=== PATIENT | male | born 1985 | race Caucasian/White ===

== ENCOUNTER 2016-09-19 16:20 | Emergency (ER) | payer OTHER ==
[2016-09-19 16:47] VITALS: BP 105/76; PULSE 58; TEMP 97.2; BMI 22.1
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
== END 2016-09-19 17:00 | disposition home or self-care (01) ==
LOC: JERFT 16:20 → JER 16:20 → JERFT 17:00
DX: S20.222A Contusion of left back wall of thorax, initial encounter (principal); Y04.1XXA Assault by human bite, initial encounter; Y93.89 Activity, other specified; Y92.198 Other place in other specified residential institution as the place of occurrence of the external cause; E11.9 Type 2 diabetes mellitus without complications; J45.909 Unspecified asthma, uncomplicated; F98.8 Other specified behavioral and emotional disorders with onset usually occurring in childhood and adolescence; F79 Unspecified intellectual disabilities; Q87.1 Congenital malformation syndromes predominantly associated with short stature
CPT/HCPCS: 99281-25

== ENCOUNTER 2018-07-18 09:03 | Emergency (ER) | payer OTHER ==
[2018-07-18 09:21] VITALS: BMI 34.0
--- NOTE | 2018-07-18 09:46 | PDOC ---
History of Present Illness - General Chief Complaint: Weakness Stated Complaint: SICK History Source: Patient Exam Limitations: No Limitations - History of Present Illness Initial Comments: 07/18/18 10:19 33 yo M with a hx of MR, DM, asthma, and manic disorder presents to the emergency department with lethargy and non productive cough for the past 3 days. Per the fire prevention forester, he states that normally he is hyperactive and runs around. He denies recent sick contacts in the facility and states his temperature has not been elevated. Per the patient, he states he "feels better" but was sleepy on interview and difficult to get answers out of. He denies the following: fever, chills, chest pain, SOB, abdominal pain, dysuria, nausea, vomiting, and constipation. Endorses diarrhea. PMD: Dr. Juvencio Narvaez: rectal prolapse Meds: loratadine, lithium, valproic acid, clonazepam, and trazadone Allergies: NKDA Social: Denies tobacco, alcohol, and substance abuse. Past History - Past Medical History Allergies/Adverse Reactions: Allergies Allergy/AdvReac Type Severity Reaction Status Date / Time No Known Allergies Allergy Verified 09/19/16 16:27 Home Medications: Ambulatory Orders Ammonium Lactate [Skin Treatment] 225 gm TP DAILY 06/01/14 Carbamazepine [Tegretol -] 600 mg PO TID 06/01/14 Clonazepam 0.5 mg PO BID 06/01/14 Clonazepam [Klonopin] 2 mg PO HS 06/01/14 Docusate Sodium [Colace -] 200 mg PO BID 06/01/14 [place] Carbonate [Eskalith -] 300 mg PO DAILY 06/01/14 Melatonin 6 mg PO HS 06/01/14 Multivitamins [Multivit ([facility])] 1 tab PO DAILY 06/01/14 Risperidone 0.5 mg PO HS 06/01/14 Risperidone 3 mg PO BID 06/01/14 Divalproex *ER* [Depakote *ER* -] 500 mg PO BID 10/16/15 Albuterol 0.083% Nebulizer Velia [Ventolin 0.083% Nebulizer Soln -] 1 amp NEB Q4H #30 amp 07/18/18 Calcium Carbonate/Vitamin D3 [Calcium 500-Vit D3 600 Caplet] 1 each PO DAILY Carbamide Peroxide 6.5% [Debrox -] 1 drop AD ASDIR 07/18/18 Cholecalciferol (Vitamin D3) [Vitamin D] 2,000 unit PO DAILY 07/18/18 Divalproex [Depakote -] 250 mg PO DAILY 07/18/18 Loratadine 10 mg PO DAILY 07/18/18 Nebulizer Accessories [Reusable Nebulizer Kit] 1 each MC DAILY #1 kit 07/18/18 Nebulizer [Compact Compressor Nebulizer] 1 each MC DAILY #1 each 07/18/18 Oseltamivir Phosphate [Tamiflu -] 75 mg PO BID #10 capsule 07/18/18 Prednisone [Prednisone 50 MG TABLETS] 50 mg PO DAILY #3 tablet 07/18/18 traZODone HCL [Trazodone HCl] 100 mg PO HS 07/18/18 Asthma: Yes COPD: No Diabetes: Yes Psychiatric Problems: Yes (ADD, AARSKOG SYNDROME) - Immunization History Immunization Up to Date: Yes - Suicide/Smoking/Psychosocial Hx Smoking History: Never smoked Hx Alcohol Use: No Drug/Substance Use Hx: No Substance Use Type: None Review of Systems - Review of Systems Able to Perform ROS?: Yes Is the patient limited Greenlandic proficient: No Constitutional: Yes: Weakness. No: Chills, Diaphoresis, Fever HEENTM: Yes: Nose Congestion. No: Recent change in vision, Nose Pain, Throat Pain, Mouth Pain Respiratory: Yes: Cough. No: Shortness of Breath, SOB with Exertion, Productive cough, Hemoptysis Cardiac (ROS): No: Chest Pain, Lightheadedness, Palpitations, Syncope, Chest Tightness ABD/GI: Yes: Diarrhea. No: Constipated, Nausea, Poor Appetite, Poor Fluid Intake, Rectal Bleeding, Vomiting, Indigestion, Abdominal cramping, Tarry Stools : No: Burning, Dysuria, Hematuria, Urgency Musculoskeletal: No: Back Pain, Joint Pain, Neck Pain Integumentary: No: Rash Neurological: No: Headache, Numbness Psychiatric: No: Change in Appetite Endocrine: No: Unexplained Weight Gain *Physical Exam - Vital Signs Last Vital Signs Temp Pulse Resp BP Pulse Ox 99.1 F 69 16 108/63 93 L 07/18/18 09:13 07/18/18 09:13 07/18/18 09:13 07/18/18 09:13 07/18/18 09:13 - Physical Exam General Appearance: Yes: Nourished, Appropriately Dressed. No: Apparent Distress, Intoxicated HEENT: positive: EOMI, MAGGIE, Normal Voice, Pharynx Normal, Nasal Congestion ( yellow discharge), Rhinorrhea, Hearing Grossly Normal, Other (oral secretions that were present before illness. ). negative: Pale Conjunctivae, Scleral Icterus (R), Scleral Icterus (L), Muffled/Hoarse voice, Pharyngeal Erythema, Tonsillar Exudate, Tonsillar Erythema, Sinus Tenderness, Excessive drooling Neck: positive: Trachea midline. negative: Tender, Lymphadenopathy (R), Lymphadenopathy (L), Tender lateral, Tender midline Respiratory/Chest: positive: Lungs Clear, Normal Breath Sounds. negative: Chest Tender, Respiratory Distress, Accessory Muscle Use, Crackles, Rales, Rhonchi, Stridor, Wheezing, Hyperresonant Cardiovascular: positive: Regular Rhythm, Regular Rate, S1, S2. negative: Systolic Murmur Gastrointestinal/Abdominal: positive: Normal Bowel Sounds, Flat, Soft. negative : Tender, Guarding, Rebound, Hernia, Mass Lymphatic: negative: Adenopathy Musculoskeletal: positive: Normal Inspection. negative: CVA Tenderness, Vertebral Tenderness Extremity: positive: Normal Capillary Refill, Normal Inspection, Normal Range of Motion. negative: Tender Integumentary: positive: Normal Color, Dry, Warm. negative: Rash, Swelling Neurologic: positive: Alert, Normal Mood/Affect, Motor Strength 5/5, Other ( lethargic on exam. inconsistent following of commands) Moderate Sedation - Procedure Monitoring Vital Signs: Procedure Monitoring Vital Signs Temperature 99.1 F 07/18/18 09:13 Pulse Rate 69 07/18/18 09:13 Respiratory Rate 16 07/18/18 09:13 Blood Pressure 108/63 07/18/18 09:13 O2 Sat by Pulse Oximetry (%) 93 L 07/18/18 09:13 Heart Score/ECG Review - ECG Intrepretation Comment:: ventricular rate: 73 bpm, MT is 140 ms, QTc is 427 ms, QRS is 102 ms. Normal sinus rhythm without ST elevations or depressions. ED Treatment Course - LABORATORY CBC & Chemistry Diagram: 07/18/18 10:33 07/18/18 10:33 Medical Decision Making - Medical Decision Making 07/18/18 11:21 33 yo M with a hx of MR, DM, asthma, and manic disorder presents to the emergency department with lethargy and non productive cough for the past 3 days. Initial vitals" Initial Vital Signs Temp Pulse Resp BP Pulse Ox 99.1 F 69 16 108/63 93 L 07/18/18 09:13 07/18/18 09:13 07/18/18 09:13 07/18/18 09:13 07/18/18 09:13 Work up ddx: AMS possibly secondary to infectious etiology (PNA vs UTI vs viral) vs metabolic disturbance vs medications non compliance vs toxicity vs sepsis vs influenza. Patient is compliant with medications per the fire prevention forester. Laboratory Tests 07/18/18 07/18/18 07/18/18 10:20 10:20 10:20 WBC RBC Hgb Hct MCV MCH MCHC RDW Plt Count MPV Absolute Neuts (auto) Neutrophils % Lymphocytes % Monocytes % Eosinophils % Basophils % Nucleated RBC % PT with INR INR PTT (Actin FS) VBG pH 7.35 POC VBG pCO2 68.7 H* POC VBG pO2 37.8 Mixed VBG HCO3 37.6 H Sodium Potassium Chloride Carbon Dioxide Anion Gap BUN Creatinine Creat Clearance w eGFR Random Glucose Lactic Acid 1.9 Calcium Total Bilirubin AST ALT Alkaline Phosphatase Total Protein Albumin Influenza A (Rapid) Positive A Influenza B (Rapid) Negative 07/18/18 07/18/18 07/18/18 10:33 10:33 10:33 WBC 2.9 L RBC 4.56 Hgb 15.2 Hct 45.0 MCV 98.6 H MCH 33.3 MCHC 33.7 RDW 13.0 Plt Count 79 L MPV 8.7 Absolute Neuts (auto) 2.0 Neutrophils % 68.0 Lymphocytes % 11.9 Monocytes % 19.9 H Eosinophils % 0.0 Basophils % 0.2 Nucleated RBC % 0 PT with INR 15.40 H INR 1.30 H PTT (Actin FS) 39.9 H VBG pH POC VBG pCO2 POC VBG pO2 Mixed VBG HCO3 Sodium 135 L Potassium 4.9 Chloride 93 L Carbon Dioxide 36 H Anion Gap 6 L BUN 23 H Creatinine 1.3 Creat Clearance w eGFR > 60 Random Glucose 96 Lactic Acid Calcium 9.1 Total Bilirubin 0.6 AST 60 H ALT 32 Alkaline Phosphatase 41 L Total Protein 6.6 Albumin 3.0 L Influenza A (Rapid) Influenza B (Rapid) Positive influenza A. patient's was given tamiflu in the department, as well as duoneb, tylenol, and solumedrol. patient was signfiicantly better symptoms ayers at the time of discharge. his lungs improved with no wheezing on auscultation with oxygen saturation at 92% and greater with ambulation. discharged back to facility. per the fire prevention forester, he arranged a primary medical care appointment with the patient's doctor for this Tuesday. Dispo: Discharge *DC/Admit/Observation/Transfer Diagnosis at time of Disposition: Influenza Asthma Qualifiers: Asthma severity: unspecified severity Asthma persistence: unspecified Asthma complication type: unspecified Qualified Code(s): J45.909 - Unspecified asthma, uncomplicated - Discharge Dispostion Disposition: HOME Decision to Admit order: No - Prescriptions Prescriptions: Albuterol 0.083% Nebulizer Velia [Ventolin 0.083% Nebulizer Soln -] 1 amp NEB Q4H #30 amp Nebulizer [Compact Compressor Nebulizer] 1 each MC DAILY #1 each Nebulizer Accessories [Reusable Nebulizer Kit] 1 each MC DAILY #1 kit Oseltamivir Phosphate [Tamiflu -] 75 mg PO BID #10 capsule Prednisone [Prednisone 50 MG TABLETS] 50 mg PO DAILY #3 tablet - Referrals Referrals: [facility] [place] [facility] [Provider Group] - Patient Instructions Printed Discharge Instructions: DI for Asthma -- Adult, DI for Influenza -- Adult Additional Instructions: You were seen in the emergency department for the evaluation of your weakness. your chest xray was negative for pneumonia. you improved with an inhaler. we prescribed you a nebulizer with albuterol. please use 1 amp in the nebulizer every 4 hours. we also prescribed you prednisone which is to be taken one time per day for 3 days. please follow up with your primary medical doctor within 72 hours or our primary medical group. please return to the emergency department if you have worsening symptoms or new concerning symptoms such as uncontrollable nausea and vomiting, weakness, and shortness of breath, please return to the emergency department. also take the tamiflu twice per day for 5 days. - Post Discharge Activity
[2018-07-18] MEDS ORDERED: ALBUTEROL SO4 2.5/IPRATROPIUM 0.5 INH SOL 3 ML VIAL.NEB. NEB ONE ×3 (10:07→11:35)
[2018-07-18] MEDS ORDERED: SODIUM CHLORIDE 1,000 ML IV STA (10:07)
[2018-07-18] MEDS ORDERED: ACETAMINOPHEN 1000 MG/100 ML VIAL (NON FORMULARY) IVPB ONE (10:24)
[2018-07-18 10:44] LABS: BASO % 0.2 % (0-2.0); HEMOGLOBIN 15.2 GM/dL (11.7-16.9); LYMPH % 11.9 % (8-40); MCH 33.3 pg (25.7-33.7); MCHC 33.7 g/dl (32.0-35.9); MEAN CELL VOLUME 98.6 fl (80-96); MEAN PLT VOLUME 8.7 fl (7.5-11.1); MONO % 19.9 % (3.8-10.2); PLATELET COUNT 79 K/MM3 (134-434); RBC 4.56 M/mm3 (4.00-5.60); WHITE BLOOD COUNT 2.9 K/mm3 (4.0-10.0)
[2018-07-18 10:45] LABS: VENOUS PC02 68.7 mmHg (38-52); VENOUS PH 7.35 (7.32-7.42)
[2018-07-18 10:46] LABS: VENOUS PO2 37.8 mmHg (28-48)
[2018-07-18 11:04] LABS: INR 1.3 (0.83-1.09); PROTHROMBIN TIME (PATIENT) 15.4 SEC (9.7-13.0)
[2018-07-18 11:07] LABS: ACTIVATED PTT 39.9 SECONDS (25.2-36.5); ALK PHOS 41 U/L (45-117); ANION GAP 6 MMOL/L (8-16); BILIRUBIN,TOTAL 0.6 mg/dL (0.2-1); BLOOD UREA NITROGEN 23 mg/dL (7-18); CALCIUM 9.1 mg/dL (8.5-10.1); CHLORIDE 93 mmol/L (98-107); CO2 36 mmol/L (21-32); CREATININE 1.3 mg/dL (0.55-1.3); GLUCOSE,RANDOM 96 mg/dL (74-106); POTASSIUM 4.9 mmol/L (3.5-5.1); SGOT/AST 60 U/L (15-37); SGPT/ALT 32 U/L (13-61); SODIUM 135 mmol/L (136-145); TOT PROT 6.6 g/dl (6.4-8.2)
[2018-07-18] MEDS ORDERED: OSELTAMIVIR PHOSPHATE 6 MG/1 ML PO ONE (11:25)
[2018-07-18] MEDS ORDERED: methylPREDNISolone NA SUCC 125 MG/2 ML VIAL IVPUSH ONE (11:28)
[2018-07-18] MEDS ORDERED: OSELTAMIVIR PHOSPHATE 75 MG CAPSULE ONE (11:35)
[2018-07-18] MEDS ORDERED: methylPREDNISolone NA SUCC 125 MG/2 ML VIAL ONE (11:36)
--- NOTE | 2018-07-18 11:36 | PDOC ---
Attending Attestation - Resident Resident Name: Ortega Morrison - ED Attending Attestation I have performed the following: I have examined & evaluated the patient, The case was reviewed & discussed with the resident, I agree w/resident's findings & plan, Exceptions are as noted - HPI HPI: 07/18/18 11:36 The patient is a 33 year old male, from [place], with a significant past medical history of MR, Asthma, Diabetes, ADD, and Aarskog syndrome who presents to the emergency department with lethargy and non productive cough for the past 3 days. As per racing secretary, the patient is normally hyperactive but has been very sleepy today. Pt has also had nonproductive cough. As per racing secretary, he denies any recent sick contact in the facility and his temperature has not been elevated. Secondarily, the patient endorses watery , nonbloody, diarrhea. The patient denies chest pain, shortness of breath, headache and dizziness. Denies abdominal pain. Denies fever, chills, nausea, vomit, and constipation. Denies dysuria, frequency, urgency and hematuria. Allergies: NKA Past surgical history: None reported Social history: Rectal prolapse. Denies toxic habits. Meds: loratadine, lithium, valproic acid, clonazepam, and trazodone PCP: Dr. Henning - Physicial Exam PE: 07/18/18 11:44 GENERAL: Awake, alert, in no acute distress. HEAD: No signs of trauma EYES: PERRLA, EOMI, sclera anicteric, conjunctiva clear ENT: Auricles normal inspection, hearing grossly normal, nares patent, oropharynx clear without exudates. Moist mucosa NECK: Nontender, no stepoffs, Normal ROM, supple, no lymphadenopathy, JVD, or masses LUNGS: + expiratory wheezes HEART: Regular rate and rhythm, normal S1 and S2, no murmurs, rubs or gallops ABDOMEN: Soft, nontender, normoactive bowel sounds. No guarding, no rebound. No masses EXTREMITIES: Normal range of motion, no edema. No clubbing or cyanosis. No cords, erythema, or tenderness NEUROLOGICAL: Cranial nerves II through XII intact. 5/5 strength and sensation in all extremities, Normal speech, normal gait, normal cerebellar function SKIN: Warm, Dry, normal turgor, no rashes or lesions noted. - Medical Decision Making 07/18/18 11:46 33 M with lethargy, found to be febrile in ED. Exam notable for wheezing. Suspect viral illness with asthma exacerbation. Vitals notable for hypoxia. - Labs, cultures - CXR, UA - Flu swab - Duonebs, steroids 07/18/18 11:59 Pt is Flu A positive CXR clear Reassessed s/p neb, lung sounds improved but pt persistently hypoxic to 89%. Will continue nebs 07/18/18 13:37 Labs wnl Pt reassessed s/p nebs and steroids. Lung exam now clear without wheezing Pt ambulated in ED with continuous pulse ox, maintaining O2 sat > 92 Pt is well appearing, with normal vitals. Clinically stable for DC at this time. I discussed the physical exam findings, ancillary test results and final diagnoses with the patients racing secretary I answered all of their questions. The family was satisfied with the care received and felt comfortable with the discharge plan and treatment plan. They agree to follow up with the primary care physician within 24-72 hours.
[2018-07-18 12:43] VITALS: TEMP 98.5
[2018-07-18 13:26] LABS: URINE APPEARANCE CLEAR; URINE BILIRUBIN NEGATIVE (<2.0 mg/dL); URINE COLOR YELLOW; URINE GLUCOSE (UA) NEGATIVE (NEGATIVE); URINE KETONE 1+ (NEGATIVE); URINE LEUK ESTERASE NEGATIVE (NEGATIVE); URINE NITRITE NEGATIVE (NEGATIVE); URINE PROTEIN NEGATIVE (NEGATIVE); URINE UROBILINOGEN 4.0 E.U/dl mg/dL (0.2-1.0)
[2018-07-18 14:15] VITALS: BP 105/60; PULSE 81
--- NOTE | 2018-07-18 16:18 | EKG ---
Test Reason : Blood Pressure : / mmHG Vent. Rate : 073 BPM Atrial Rate : 073 BPM P-R Int : 140 ms QRS Dur : 102 ms QT Int : 388 ms P-R-T Axes : 091 064 067 degrees QTc Int : 427 ms NORMAL SINUS RHYTHM VOLTAGE CRITERIA FOR LEFT VENTRICULAR HYPERTROPHY NONSPECIFIC ST ABNORMALITY ABNORMAL ECG Confirmed by MD ADALGISA, JOY ([id number]) on 07/18/2018 4:18:20 PM Referred By: Confirmed By:JOY DIANA MD
== END 2018-07-18 14:15 | disposition home or self-care (01) ==
LOC: JER 09:03
PROC: 3E0F7GC Introduction of Other Therapeutic Substance into Respiratory Tract, Via Natural or Artificial Opening (ICD-10-PCS; principal; 2018-07-18)
PROC: 3E0F7GC Introduction of Other Therapeutic Substance into Respiratory Tract, Via Natural or Artificial Opening (ICD-10-PCS; 2018-07-18)
PROC: 3E033NZ Introduction of Analgesics, Hypnotics, Sedatives into Peripheral Vein, Percutaneous Approach (ICD-10-PCS; 2018-07-18)
PROC: 3E0333Z Introduction of Anti-inflammatory into Peripheral Vein, Percutaneous Approach (ICD-10-PCS; 2018-07-18)
PROC: 3E0337Z Introduction of Electrolytic and Water Balance Substance into Peripheral Vein, Percutaneous Approach (ICD-10-PCS; 2018-07-18)
DX: J09.X2 Influenza due to identified novel influenza A virus with other respiratory manifestations (principal); F30.9 Manic episode, unspecified; F79 Unspecified intellectual disabilities; E11.9 Type 2 diabetes mellitus without complications; F98.8 Other specified behavioral and emotional disorders with onset usually occurring in childhood and adolescence; Q87.1 Congenital malformation syndromes predominantly associated with short stature
CPT/HCPCS: 36415; 71045-TC-FY; 80053; 81003; 82803; 83605; 85025; 85610; 85730; 87040; 87086; 87804; 93005; 93010; 94640; 96361; 96374; 96375; 99285-25; G9035; J0131; J7030

== ENCOUNTER 2018-12-25 10:50 | Emergency (ER) | payer OTHER ==
[2018-12-25 11:02] VITALS: BP 112/69; PULSE 60; TEMP 97.8; BMI 24.3
--- NOTE | 2018-12-25 11:22 | PDOC ---
History of Present Illness - General Chief Complaint: Abscess Boil Stated Complaint: BOIL Time Seen by Provider: 12/25/18 11:13 - History of Present Illness Initial Comments: 12/25/18 11:21 33-year-old male with moderate MR presents for evaluation with a worker from the home which she resides for evaluation of an abscess on his scrotum first noticed 2 days ago. No systemic symptoms. Past History - Past Medical History Allergies/Adverse Reactions: Allergies Allergy/AdvReac Type Severity Reaction Status Date / Time No Known Allergies Allergy Verified 12/25/18 11:02 Home Medications: Ambulatory Orders Ammonium Lactate [Skin Treatment] 225 gm TP DAILY 06/01/14 Clonazepam [Klonopin] 2 mg PO HS 06/01/14 [place] Carbonate [Eskalith -] 300 mg PO BID 06/01/14 Melatonin 6 mg PO HS 06/01/14 Multivitamins [Multivit ([facility] Formul[facility])] 1 tab PO DAILY 06/01/14 Risperidone 3 mg PO BID 06/01/14 Divalproex *ER* [Depakote *ER* -] 500 mg PO BID 10/16/15 Calcium Carbonate/Vitamin D3 [Calcium 500-Vit D3 600 Caplet] 1 each PO DAILY Carbamide Peroxide 6.5% [Debrox -] 1 drop AD ASDIR 07/18/18 Cholecalciferol (Vitamin D3) [Vitamin D] 2,000 unit PO DAILY 07/18/18 traZODone HCL [Trazodone HCl] 100 mg PO HS 07/18/18 Cephalexin [Keflex] 500 mg PO QID #40 capsule 12/25/18 Docusate Sodium [Colace] 100 mg PO BID 12/25/18 Polyethylene Glycol 3350 [Miralax (For Bowel Prep) -] 17 gm PO DAILY 12/25/18 Sulfamethoxazole/Trimethoprim [Bactrim Ds -] 1 tab PO BID #14 tablet 12/25/18 Asthma: Yes COPD: No Diabetes: Yes Psychiatric Problems: Yes (ADD, AARSKOG SYNDROME) - Immunization History Immunization Up to Date: Yes - Suicide/Smoking/Psychosocial Hx Smoking History: Never smoked Hx Alcohol Use: No Drug/Substance Use Hx: No Substance Use Type: None Review of Systems - Review of Systems Constitutional: No: Fever *Physical Exam - Vital Signs Last Vital Signs Temp Pulse Resp BP Pulse Ox 97.8 F 60 16 112/69 99 12/25/18 10:58 12/25/18 10:58 12/25/18 10:58 12/25/18 10:58 12/25/18 10:58 - Physical Exam Comments: 12/25/18 11:21 HEAD: NC/AT EYES: Conjuntiva clear External genitalia: External genitalia are normal. There is a small postulate subcentimeter on the left side of the scrotum with surrounding induration and mild erythema. There is no warmth or fluctuance. MS: Full ROM in all joints without edema NEUROLOGIC: No gross sensory or motor deficits, NVID SKIN: Normal color and temperature no lesions or rashes ED Treatment Course - RADIOLOGY Radiology Studies Ordered: Category Date Time Status SCROTUM AND CONTENTS US [US] Stat Ultrasound 12/25/18 11:20 Ordered Medical Decision Making - Medical Decision Making 12/25/18 12:47 Ultrasound reviewed. This may be a forming abscess or an early cellulitis I placed the patient on Bactrim and Keflex and 11 follow-up with urology. *DC/Admit/Observation/Transfer Diagnosis at time of Disposition: Cellulitis, scrotum - Discharge Dispostion Disposition: HOME Condition at time of disposition: Stable Decision to Admit order: No - Prescriptions Prescriptions: Cephalexin [Keflex] 500 mg PO QID #40 capsule Sulfamethoxazole/Trimethoprim [Bactrim Ds -] 1 tab PO BID #14 tablet - Referrals Referrals: Zeferino Rodrigues MD [Staff Physician] - - Patient Instructions Additional Instructions: Please take the antibiotics as directed. Follow-up with urology without fail in 1-2 days for further evaluation and treatment options and return to the emergency room for worsening symptoms. - Post Discharge Activity
== END 2018-12-25 12:55 | disposition home or self-care (01) ==
LOC: JERFT 10:50
DX: N49.2 Inflammatory disorders of scrotum (principal); F79 Unspecified intellectual disabilities; F98.8 Other specified behavioral and emotional disorders with onset usually occurring in childhood and adolescence; Q87.1 Congenital malformation syndromes predominantly associated with short stature; E11.9 Type 2 diabetes mellitus without complications; J45.909 Unspecified asthma, uncomplicated
CPT/HCPCS: 76870-TC; 99281-25

== ENCOUNTER 2019-09-03 18:06 | Emergency (ER) | payer OTHER ==
[2019-09-03 19:00] VITALS: TEMP 97.2; BMI 23.8
--- NOTE | 2019-09-03 19:02 | PDOC ---
Rapid Medical Evaluation Chief Complaint: Injury Time Seen by Provider: 09/03/19 18:55 Medical Evaluation: Allergies Allergy/AdvReac Type Severity Reaction Status Date / Time No Known Allergies Allergy Verified 12/25/18 11:02 09/03/19 18:57 I have performed a brief in-person evaluation of this patient. The patient presents with a chief complaint of: head injury s/p mechanical fall yesterday as witnessed by staff members. No LOC, seizures or vomiting. Baseline since per [facility] laboratory assistant of [facility] who is accompanying pt. H/o MR. seizures, psych d/o Pertinent physical exam findings:unremarkable I have ordered the following: nothing The patient will proceed to the ED for further evaluation Discharge Disposition - Diagnosis Head injury Qualifiers: Encounter type: initial encounter Qualified Code(s): S09.90XA - Unspecified injury of head, initial encounter - Referrals - Patient Instructions - Post Discharge Activity
--- NOTE | 2019-09-03 21:25 | PDOC ---
History of Present Illness - General Chief Complaint: Injury Stated Complaint: FALL/HURT OCCIPITAL AREA/EVALUATION Time Seen by Provider: 09/03/19 18:55 - History of Present Illness Initial Comments: 09/03/19 21:38 34-year-old male with severe MR presents after a fall at his day program yesterday. Mechanical fall while wearing socks hitting the back of his head no change in behavior Past History - Past Medical History Allergies/Adverse Reactions: Allergies Allergy/AdvReac Type Severity Reaction Status Date / Time No Known Allergies Allergy Verified 12/25/18 11:02 Home Medications: Ambulatory Orders Ammonium Lactate [Skin Treatment] 225 gm TP DAILY 06/01/14 Clonazepam [Klonopin] 2 mg PO HS 06/01/14 [place] Carbonate [Eskalith -] 300 mg PO BID 06/01/14 Melatonin 6 mg PO HS 06/01/14 Multivitamins [Multivit ([facility] Formul[facility])] 1 tab PO DAILY 06/01/14 Risperidone 3 mg PO BID 06/01/14 Divalproex *ER* [Depakote *ER* -] 500 mg PO BID 10/16/15 Calcium Carbonate/Vitamin D3 [Calcium 500-Vit D3 600 Caplet] 1 each PO DAILY 07/18/18 Carbamide Peroxide 6.5% [Debrox -] 1 drop AD ASDIR 07/18/18 Cholecalciferol (Vitamin D3) [Vitamin D] 2,000 unit PO DAILY 07/18/18 traZODone HCL [Trazodone HCl] 100 mg PO HS 07/18/18 Cephalexin [Keflex] 500 mg PO QID #40 capsule 12/25/18 Docusate Sodium [Colace] 100 mg PO BID 12/25/18 Polyethylene Glycol 3350 [Miralax (For Bowel Prep) -] 17 gm PO DAILY 12/25/18 Sulfamethoxazole/Trimethoprim [Bactrim Ds -] 1 tab PO BID #14 tablet 12/25/18 Asthma: Yes COPD: No Diabetes: Yes Psychiatric Problems: Yes (ADD, AARSKOG SYNDROME) - Immunization History Immunization Up to Date: Yes - Psycho Social/Smoking Cessation Hx Smoking History: Never smoked Information on smoking cessation initiated: No Hx Alcohol Use: No Drug/Substance Use Hx: No Substance Use Type: None Review of Systems - Review of Systems Able to Perform ROS?: No *Physical Exam - Vital Signs Last Vital Signs Temp Pulse Resp BP Pulse Ox 97.2 F L 58 L 16 99/53 L 100 09/03/19 18:56 09/03/19 18:56 09/03/19 18:56 09/03/19 18:56 09/03/19 18:56 - Physical Exam 09/03/19 21:38 GENERAL: The patient is awake, alert in no acute distress. HEAD: Normal with no signs of trauma. EYES: sclera anicteric, conjunctiva clear. ENT: Ears normal tympanic membranes normal oropharynx clear uvula midline NECK: Normal range of motion LUNGS: Breath sounds equal, clear to auscultation bilaterally. No wheezes, and no crackles. HEART: S1 and S2 without murmur, rub or gallop. ABDOMEN: Soft, nontender, normoactive bowel sounds. No guarding, no rebound. No masses. EXTREMITIES: Normal range of motion, no edema. No clubbing or cyanosis. No cords, erythema, or tenderness. PSYCH: Normal mood, normal affect. SKIN: Warm, Dry, normal turgor, no rashes or lesions noted. ED Treatment Course - RADIOLOGY Radiology Studies Ordered: Category Date Time Status CERVICAL SPINE CT W/O CONTR [CT] Stat CT Scan 09/03/19 20:[address] WITHOUT CONTRAST [CT] Stat CT Scan 09/03/19 20:05 Completed Medical Decision Making - Medical Decision Making 09/03/19 21:20 CAT scan reviewed neurosurgery on-call phoned 09/03/19 21:37 I have discussed this case with Dr. Menjivar from neurosurgery. He does not believe this bleed to be acute and is most likely an incidental finding. Given the patient is functioning at baseline the only reason to repeat the scan would be a change in behavior. I have relayed this message to the caregiver and they are in agreement with the plan and will watch the patient the injury did happen yesterday. This is also reassuring to neurosurgery. Discharge - Discharge Information Problems reviewed: Yes Clinical Impression/Diagnosis: Head injury Qualifiers: Encounter type: initial encounter Qualified Code(s): S09.90XA - Unspecified injury of head, initial encounter Condition: Stable Disposition: HOME - Admission No - Follow up/Referral Referrals: Jonel Menjivar MD, [facility] [Staff Physician] - - Patient Discharge Instructions Additional Instructions: Please without fail follow-up with neurosurgery in 1 to 2 days for further evaluation and treatment options. Return to the emergency room immediately should there be any changes in the behavior of Jesus. - Post Discharge Activity
[2019-09-03 21:48] VITALS: BP 115/75; PULSE 57
== END 2019-09-03 21:55 | disposition home or self-care (01) ==
LOC: JERFT 18:06 → JER 18:06 → JERFT 21:55
DX: S09.8XXA Other specified injuries of head, initial encounter (principal); W01.198A Fall on same level from slipping, tripping and stumbling with subsequent striking against other object, initial encounter; Y93.89 Activity, other specified; Y92.89 Other specified places as the place of occurrence of the external cause; Y99.8 Other external cause status; G40.909 Epilepsy, unspecified, not intractable, without status epilepticus; F72 Severe intellectual disabilities; Q87.19 Other congenital malformation syndromes predominantly associated with short stature; E11.9 Type 2 diabetes mellitus without complications; Z87.09 Personal history of other diseases of the respiratory system
CPT/HCPCS: 70450-TC; 72125-TC; 99284-25